=== PATIENT | female | born 1980 | race Caucasian/White ===

== ENCOUNTER 2017-07-31 18:40 | Emergency (ER) | payer MEDICAID ==
[2017-07-31 18:49] VITALS: BP 135/88
--- NOTE | 2017-07-31 19:01 | ED Physician Documentation ---
PD HPI UPPER EXT INJURY - Stated complaint Stated Complaint: FINGER LAC - Chief complaint Chief Complaint: Laceration - History obtained from History obtained from: Patient - History of Present Illness Location: Right, Finger (index) Type of injury: Laceration Where injury occurred: Home Timing - onset: How many hours ago (1) Timing - duration: Hours (1) Timing - details: Abrupt onset Pain level max: 2 Pain level now: 2 Improved by: Rest Worsened by: Palpating Associated symptoms: No: Weakness, Numbness, Tingling, Swelling Contributing factors: No: Anticoagulated Similar symptoms before: Has not had sx before Recently seen: Not recently seen - Additonal information Additional information: cut finger on a broken glass today. Review of Systems Neurologic: denies: Focal weakness, Numbness PD PAST MEDICAL HISTORY - Past Medical History Past Medical History: Yes Other Past Medical History: lymphoma - Past Surgical History Past Surgical History: Yes HEENT: Tonsil/Adenoidectomy - Living Situation Living Situation: reports: With family Living Arrangement: reports: At home - Social History Does the pt smoke?: No Does the pt have substance abuse?: No - Family History Family history: reports: Non contributory - Immunizations Immunizations are current?: Yes Immunizations: TDAP current <10years PD ED PE NORMAL - Vitals Vital signs reviewed: Yes - General General: Alert and oriented X 3, No acute distress - HEENT HEENT: Moist mucous membranes - Neck Neck: Supple, no meningeal sign - Cardiac Cardiac: RRR - Respiratory Respiratory: No respiratory distress, Clear bilaterally - Derm Derm: Warm and dry - Extremities Extremities: Other (R index finger - 0.1cm, flap. no bleeding. NVI.) - Neuro Neuro: Alert and oriented X 3 - Psych Psych: Normal mood, Normal affect Results - Vitals Vitals: Vital Signs - 24 hr 07/31/17 18:47 Temperature 36.8 C Heart Rate 104 H Respiratory 20 Rate Blood Pressure 135/88 H O2 Saturation 98 Oxygen O2 Source Room air Procedures - Laceration (location) R index finger Length in cm: 0.1 Wound type: Flap, Other (pad of finger) Neurovascular status: Sensory intact, Motor intact, Vascular intact Tendon involvement: Tendon intact Wound Preparation: Irrigated copiously NS Skin layer closure: Dermabond Other: Patient tolerated well, No complications, Neurovascular intact, Tetanus UTD Complexity: Simple PD MEDICAL DECISION MAKING - ED course Complexity details: considered differential, d/w patient, d/w family ED course: Patient with a 0.1 cm flap laceration to the pad of the right index finger. Repaired with Dermabond. Tolerated well. Tetanus up-to-date. Warnings of infection and instructions on wound care given at bedside. Also counseled on how to minimize scarring. Patient counseled regarding signs and symptoms for which I believe and urgent re-evaluation would be necessary. Patient with good understanding of and agreement to plan and is comfortable going home at this time This document was made in part using voice recognition software. While efforts are made to proofread this document, sound alike and grammatical errors may occur. Departure - Departure Disposition: 01 Home, Self Care Clinical Impression: Finger laceration Qualifiers: Encounter type: initial encounter Finger: index finger Damage to nail status: without damage Foreign body presence: without foreign body Laterality: right Qualified Code(s): S61.210A - Laceration without foreign body of right index finger without damage to nail, initial encounter Condition: Good Instructions: ED Laceration Hand Follow-Up: Jennifer Mcdonald ARNP [Primary Care Provider] - As Needed Comments: This should heal without difficulty. Keep the wound clean. Return for redness , swelling or drainage from the wound. Do not apply ointment as this will dissolve the glue. Discharge Date/Time: 07/31/17 19:10
== END 2017-07-31 19:10 | disposition home or self-care (01) ==
LOC: ED 18:40
DX: S61.210A Laceration without foreign body of right index finger without damage to nail, initial encounter (principal); W25.XXXA Contact with sharp glass, initial encounter; Y92.009 Unspecified place in unspecified non-institutional (private) residence as the place of occurrence of the external cause; Z85.72 Personal history of non-Hodgkin lymphomas
CPT/HCPCS: 12001; 99282; 99283

== ENCOUNTER 2020-02-26 11:07 | Outpatient (CLI) | payer OTHER, MEDICAID ==
--- NOTE | 2020-02-26 16:10 | XRAY Report ---
PROCEDURE: Cervical Spine 2 View INDICATIONS: NECK PAIN TECHNIQUE: 3 view(s) of the cervical spine were acquired. COMPARISON: None FINDINGS: Bones: No fractures or dislocations to the C7-T1 level. The lateral masses of C1 appear intact on t he odontoid view. No suspicious bony lesions. Minimal retrolisthesis of C5 on C6 as well as disc sp meme narrowing at this level. Soft tissues: No prevertebral soft tissue swelling. IMPRESSION: Minimal retrolisthesis and disc space narrowing at C5-6. Reviewed by: Kelly Hudson MD on 02/26/2020 4:08 PM [facility] Approved by: Kelly Hudson MD on 02/26/2020 4:08 PM PST Station ID: [id number]
== END 2020-02-26 23:59 | disposition home or self-care (01) ==
LOC: DI.S 11:07
PROVIDERS: ATTEND Physician Assistant
DX: S16.1XXA Strain of muscle, fascia and tendon at neck level, initial encounter (principal); M48.02 Spinal stenosis, cervical region

== ENCOUNTER 2021-01-19 10:03 | Emergency (ER) | payer MEDICAID ==
--- NOTE | 2021-01-19 10:31 | ED Physician Documentation ---
PD HPI CHEST PAIN - Stated complaint Stated Complaint: CHEST PX - Chief complaint Chief Complaint: Cardiac - History obtained from History obtained from: Patient - History of Present Illness Timing - onset: How many days ago (4) Timing - onset during: No: Exertion Timing - duration: Days (4) Timing - details: Still present (worse during night last night, with "gassy" feeling and some improvement with belching.), Waxing and waning Quality: Tightness, Aching Location: Substernal, Epigastric Improved by: Antacids, Other (has noted worst symptoms during night or early AM. Feels better when up and around/active.) Worsened by: No: Exertion Associated symptoms: Nausea, Feeling faint / dizzy. No: Shortness of air, Palpitations Similar symptoms before: Diagnosis (prior episode of GERD/gastritis in the past. Was not currently on H2/PPI but started Prilosec 4 days ago. Not improved as yet.) Recently seen: Not recently seen Review of Systems Constitutional: denies: Fever, Chills Nose: denies: Rhinorrhea / runny nose, Congestion Throat: denies: Sore throat Respiratory: denies: Cough GI: denies: Abdominal Pain, Nausea, Vomiting, Diarrhea Neurologic: denies: Generalized weakness, Near syncope, Altered mental status, Headache PD PAST MEDICAL HISTORY - Past Medical History Cardiovascular: None Respiratory: None Neuro: None Endocrine/Autoimmune: None GI: GERD - Past Surgical History Past Surgical History: Yes HEENT: Tonsil/Adenoidectomy - Present Medications Home Medications: Ambulatory Orders Medication Instructions Recorded Confirmed Lidocaine Viscous 2% [Xylocaine 5 ml PO Q4H PRN #100 ml 01/19/21 Viscous 2%] Sucralfate [Carafate] 1 gm PO ACHS #40 tablet 01/19/21 - Allergies Allergies/Adverse Reactions: Allergies Allergy/AdvReac Type Severity Reaction Status Date / Time No Known Drug Allergies Allergy Verified 01/19/21 10:29 - Social History Does the pt smoke?: No Smoking Status: Never smoker Does the pt drink ETOH?: No Does the pt have substance abuse?: No - Immunizations Immunizations are current?: Yes Immunizations: TDAP current <10years PD ED PE NORMAL - Vitals Vital signs reviewed: Yes - General General: Alert and oriented X 3, No acute distress, Well developed/nourished - HEENT HEENT: Moist mucous membranes, Pharynx benign - Neck Neck: Supple, no meningeal sign, No adenopathy - Cardiac Cardiac: RRR, No murmur - Respiratory Respiratory: Clear bilaterally, Other (no chestwall tenderness) - Abdomen Abdomen: Normal bowel sounds, Soft, Non distended, No organomegaly, Other (mild epigastric tender without guarding nor percussion tenderness. ) - Derm Derm: Normal color, Warm and dry - Extremities Extremities: Normal ROM s pain, No edema, No calf tenderness / cord - Neuro Neuro: Alert and oriented X 3, No motor deficit, Normal speech Results - Vitals Vitals: Vital Signs - 24 hr 01/19/21 01/19/21 01/19/21 10:09 10:30 12:00 Temperature 36.5 C Heart Rate 82 108 H 67 Respiratory 16 18 17 Rate Blood Pressure 123/86 H 125/86 H 110/83 H O2 Saturation 98 97 98 Oxygen O2 Source Room air - EKG (time done) 10:11 Rate: Rate (enter#) (96) Rhythm: NSR [place]: Normal Intervals: Normal [place] QRS: Normal Ischemia: Normal ST segments, T wave inversion (v3-6.), Non specific changes. No: ST elevation c/w ischemia, ST depression Compare to prior EKG: Old EKG unavailable - Labs Labs: Laboratory Tests 01/19/21 01/19/21 01/19/21 10:30 10:30 10:30 WBC 11.6 H RBC 5.52 H Hgb 15.7 Hct 46.8 MCV 84.8 MCH 28.4 MCHC 33.5 RDW 13.9 Plt Count 243 MPV 10.5 Neut # (Auto) 9.3 H Lymph # (Auto) 1.6 Door # (Auto) 0.6 Eos # (Auto) 0.1 Baso # (Auto) 0.0 Absolute Nucleated RBC 0.00 Nucleated RBC % 0.0 Sodium 138 Potassium 3.8 Chloride 103 Carbon Dioxide 23 Anion Gap 12.0 BUN 18 Creatinine 1.0 Estimated GFR (MDRD) 61 L Glucose 113 H Calcium 9.4 Total Bilirubin 1.0 AST 13 ALT 11 Alkaline Phosphatase 55 Troponin I High Sens < 2.3 L Total Protein 7.5 Albumin 4.6 Globulin 2.9 Albumin/Globulin Ratio 1.6 Lipase 29 - Rads (name of study) chest xray Radiology: Prelim report reviewed (normal), See rad report PD MEDICAL DECISION MAKING - ED course Complexity details: reviewed results (ECG with t inversions and no comparison here. Pt says she has some heart scarring from prior radiation therapy but not sure if ECG changes. Symptoms steady since last night and normal Trop, labs, CXR. Also improved with GI cocktail. Does not sound ACS.), re-evaluated patient (improved with GI cocktail. ), considered differential (chest pain - will get usual tests. History of GERD so can try GI meds. ), d/w patient Departure - Departure Disposition: Home, Self Care Clinical Impression: Chest discomfort Reflux esophagitis Qualifiers: Esophagitis bleeding: without hemorrhage Qualified Code(s): K21.00 - Gastro- esophageal reflux disease with esophagitis, without bleeding Condition: Stable Record reviewed to determine appropriate education?: Yes Instructions: ED GERD Prescriptions: Sucralfate [Carafate] 1 gm PO ACHS #40 tablet Lidocaine Viscous 2% [Xylocaine Viscous 2%] 5 ml PO Q4H PRN #100 ml PRN Reason: Pain Comments: No signs of acute heart or lung problems on your EKG, chest x-ray, blood tests. Presume this is some irritation of the esophagus related to reflux and acid. Continue with the Prilosec. Add sacral fate as directed for the next week to 10 days. You can use antacid such as Maalox or Mylanta along with lidocaine if needed for discomfort as well. Tylenol if needed for pains. Follow-up with your primary care if not improved well over the next several days to week. Discharge Date/Time: 01/19/21 12:12
[2021-01-19 10:41] LABS: BASOPHILS % (AUTO) 0.3 %; EOSINOPHILS # (AUTO) 0.1 10^3/uL (0.0-0.7); EOSINOPHILS % (AUTO) 0.7 %; HCT - HEMATOCRIT 46.8 % (37.0-47.0); HGB - HEMOGLOBIN 15.7 g/dL (12.0-16.0); LYMPHOCYTES # (AUTO) 1.6 10^3/uL (1.5-3.5); LYMPHOCYTES % (AUTO) 13.6 %; MEAN CORPUSCULAR HEMOGLOBIN 28.4 pg (27.0-31.0); MEAN CORPUSCULAR HGB CONC 33.5 g/dL (32.0-36.0); MEAN CORPUSCULAR VOLUME 84.8 fL (81.0-99.0); MEAN PLATELET VOLUME 10.5 fL (7.9-10.8); MONOCYTES # (AUTO) 0.6 10^3/uL (0.0-1.0); NEUTROPHILS # (AUTO) 9.3 10^3/uL (1.5-6.6); PLT - PLATELET COUNT 243 10^3/uL (130-450); RED BLOOD COUNT 5.52 10^6/uL (4.20-5.40); RED CELL DISTRIBUTION WIDTH 13.9 % (12.0-15.0); WHITE BLOOD COUNT 11.6 x10^3/uL (4.8-10.8)
--- NOTE | 2021-01-19 10:50 | XRAY Report ---
PROCEDURE: Chest 1 View X-Ray INDICATIONS: Chest pain TECHNIQUE: One view of the chest was acquired. COMPARISON: None. FINDINGS: Surgical changes and devices: None. Lungs and pleura: No pleural effusions or pneumothorax. Lungs are clear. Mediastinum: Mediastinal contours appear normal. Heart size is normal. Bones and chest wall: No suspicious bony lesions. Overlying soft tissues appear unremarkable. IMPRESSION: No acute cardiopulmonary process demonstrated radiographically. Reviewed by: Darshan Blakely MD on 01/19/2021 10:48 AM PDT Approved by: Darshan Blakely MD on 01/19/2021 10:48 AM PDT Station ID: [id number]
[2021-01-19 10:58] LABS: ALBUMIN 4.6 g/dL (3.2-5.5); ALBUMIN/GLOBULIN RATIO 1.6 (1.0-2.2); CALCIUM 9.4 mg/dL (8.5-10.3); POTASSIUM 3.8 mmol/L (3.5-5.0); TOTAL PROTEIN 7.5 g/dL (6.7-8.2)
[2021-01-19] MEDS ORDERED: LIDOCAINE VISCOUS 2% 15 ML UDC MM STA (11:27)
[2021-01-19] MEDS ORDERED: MAG HYDROX/AL HYDROX/SIMETH 30 ML UDC PO STA (11:27)
[2021-01-19 12:07] VITALS: BP 110/83
== END 2021-01-19 12:12 | disposition home or self-care (01) ==
LOC: ED 10:03
DX: K21.00 Gastro-esophageal reflux disease with esophagitis, without bleeding (principal)
CPT/HCPCS: 36415; 71045; 80053; 83690; 84484; 85025; 93005; 99284; A9270

== ENCOUNTER 2021-02-15 12:08 | Outpatient (CLI) | payer MEDICAID ==
--- NOTE | 2021-02-17 13:46 | Mammography Report ---
BILATERAL DIGITAL SCREENING MAMMOGRAM 3D/2D WITH EXAGGERATED CC: 02/15/2021 CLINICAL: Baseline exam. No prior exams were available for comparison. The tissue of both breasts is heterogeneously dense. T his may lower the sensitivity of mammography. There is a possible asymmetry in the right breast posterior depth superior region seen on the mediola teral oblique view only. There is architectural distortion associated with the asymmetry. There also is a possible asymmetry with an obscured and indistinct margin in the right breast middle depth central to the nipple seen on the craniocaudal view only. Additionally, there is a possible asymmetry with an obscured and indistinct margin in the right breas t middle depth medial region seen on the craniocaudal view only. No other significant masses, calcifications, or other findings are seen in either breast. IMPRESSION: INCOMPLETE: NEEDS ADDITIONAL IMAGING EVALUATION The possible asymmetry in the right breast posterior depth superior region seen on the mediolateral o blique view only is indeterminate. Additional views with possible ultrasound are recommended. The possible asymmetry in the right breast middle depth central to the nipple seen on the craniocauda l view only is indeterminate. Additional views with possible ultrasound are recommended. The possible asymmetry in the right breast middle depth medial region seen on the craniocaudal view o nly is indeterminate. Additional views with possible ultrasound are recommended. This exam was interpreted at Station ID: [id number]. NOTE: For mammograms, a report in lay terms will be sent to the patient. Approximately 15% of breast malignancies will not be visualized mammographically. In the management of a palpable breast mass, a negative mammogram must not discourage biopsy of a clinically suspicious lesion. Electronically Signed By: Darshan Blakely M.D., jr/michael:02/16/2021 10:00:01 ACR BI-RADS Category 0: Incomplete 3340F PARENCHYMAL PATTERN: (D) - The breast(s) demonstrate(s) heterogeneously dense fibroglandular parenchy ma. BI-RADS CATEGORY: (0) - 0 Mammo and [place] [id number] Immediate follow-up LATERALITY: (B)
== END 2021-02-15 12:09 | disposition home or self-care (01) ==
LOC: DI.S 12:08
DX: Z12.31 Encounter for screening mammogram for malignant neoplasm of breast (principal); R92.8 Other abnormal and inconclusive findings on diagnostic imaging of breast

== ENCOUNTER 2021-03-18 09:46 | Outpatient (CLI) | payer MEDICAID ==
--- NOTE | 2021-03-19 11:51 | Mammography Report ---
UNILATERAL RIGHT DIGITAL DIAGNOSTIC MAMMOGRAM 3D/2D: 03/18/2021 CLINICAL: Patient returns today to evaluate an asymmetry in the right breast. Comparison is made to exam dated: 02/15/2021 mammogram - [facility]. The tissue of right breast is heterogeneously dense. This may lower the sensitivity of mammography. There is an asymmetry in the right breast posterior depth superior region seen on the mediolateral ob lique view only. There is architectural distortion associated with the asymmetry. There also is a possible asymmetry with an obscured and indistinct margin in the right breast middle depth central to the nipple seen on the craniocaudal view only. This is less prominent. Additionally, there is an asymmetry in the right breast middle depth medial region seen on the cranio caudal view only. This is seen in additional views. This is less prominent. No other significant masses or calcifications are seen in the breast. IMPRESSION: INCOMPLETE: NEEDS ADDITIONAL IMAGING EVALUATION The asymmetry and associated architectural distortion in the right breast posterior depth superior re gion seen on the mediolateral oblique persists with spot compression. An ultrasound is recommended to evaluate for a potential underlying mass. Additional asymmetries are persistent but less prominent, likely cysts. An ultrasound is recommended and is scheduled to follow. This exam was interpreted at Station ID: [id number]. NOTE: For mammograms, a report in lay terms will be sent to the patient. Approximately 15% of breast malignancies will not be visualized mammographically. In the management of a palpable breast mass, a negative mammogram must not discourage biopsy of a clinically suspicious lesion. Electronically Signed By: Darshan Blakely M.D. jr/:03/18/2021 11:56:52 ACR BI-RADS Category 0: Incomplete 3340F PARENCHYMAL PATTERN: (D) - The breast(s) demonstrate(s) heterogeneously dense fibroglandular parashviny ma. BI-RADS CATEGORY: (0) - 0 Ultrasound [id number] Immediate follow-up LATERALITY: (B)
--- NOTE | 2021-03-19 11:51 | Ultrasound Report ---
LIMITED ULTRASOUND OF RIGHT BREAST: 03/18/2021 CLINICAL: Patient returns today to evaluate an architectural distortion in the right breast. Comparison is made to exams dated: 03/18/2021 mammogram and 02/15/2021 mammogram - [facility]. Real-time ultrasound of the right breast 9-2 o'clock region was performed. Reece scale images of the real-time examination were reviewed. There are multiple benign simple and minimally complicated cysts. No sonographic correlate for the asymmetry and architectural distortion in at 12:00 position seen on mammography. IMPRESSION: SUSPICIOUS OF MALIGNANCY The architectural distortion and asymmetry in the right breast at 12 o'clock posterior depth is not s een sonographically. This is suspicious of malignancy. A stereotactic biopsy is recommended. Additional asymmetries seen with mammography are consistent with cysts. No further follow-up is recom mended. This exam was interpreted at Station ID: [id number]. Electronically Signed By: Darshan Blakely M.D. jr/:03/19/2021 10:43:37 Entry: - 03/19/2021 11:49:01 Ultrasound BI-RADS: 4 Suspicious for malignancy BI-RADS CATEGORY: (4) - 4 None [id number] Immediate follow-up LATERALITY: ()
== END 2021-03-18 09:47 | disposition home or self-care (01) ==
LOC: DI 09:46
PROVIDERS: ATTEND Obstetrics & Gynecology
DX: R92.8 Other abnormal and inconclusive findings on diagnostic imaging of breast (principal)

== ENCOUNTER 2021-04-14 10:19 | Outpatient (CLI) | payer MEDICAID ==
--- NOTE | 2021-04-16 07:07 | Mammography Report ---
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 Comparison is made to exams dated: 03/18/2021 ultrasound, 03/18/2021 mammogram, 02/15/2021 mammogram, a nd 04/14/2021 stereotactic biopsy - [facility]. The tissue of right breast is hetero geneously dense. This may lower the sensitivity of mammography. The previously described asymmetry in the right breast posterior depth superior region seen on the me diolateral oblique view only with associated architectural distortion is not seen in today's addition al views. This was not seen on the prior ultrasound. This finding was possibly seen in only one of f our different attempts and the area was included in all four views. It could not be confidently repro duced to allow for accurate targeting for stereotactic biopsy that the patient was initially schedule d to have today. As a result, the biopsy was terminated. No other significant masses or calcifications are seen in the breast. IMPRESSION: PROBABLY BENIGN The previously described asymmetry in the right breast with possible architectural distortion could n ot be confidently reproduced for targeting during initially scheduled stereotactic guided biopsy. The re was no sonographic correlate on prior evaluation. This most likely is fibroglandular tissue and is probably benign. A follow-up right mammogram with possible right ultrasound in 6 months is recommended to demonstrate stability. Findings and recommendations were discussed with the patient during today's examination. This exam was interpreted at Station ID: [id number]. NOTE: For mammograms, a report in lay terms will be sent to the patient. Approximately 15% of breast malignancies will not be visualized mammographically. In the management of a palpable breast mass, a negative mammogram must not discourage biopsy of a clinically suspicious lesion. Electronically Signed By: Vish Gayle M.D. aty/:04/15/2021 11:09:21 ACR BI-RADS Category 3: Probably benign 3343F PARENCHYMAL PATTERN: (D) - The breast(s) demonstrate(s) heterogeneously dense fibroglandular parashviny mae. BI-RADS CATEGORY: (3) - 3 Mammo and [place] [id number] 6 month follow-up LATERALITY: (R)
== END 2021-04-14 10:20 | disposition home or self-care (01) ==
LOC: DI 10:19
PROVIDERS: ATTEND Obstetrics & Gynecology
DX: R92.8 Other abnormal and inconclusive findings on diagnostic imaging of breast (principal)

== ENCOUNTER 2021-10-16 08:57 | Outpatient (CLI) | payer MEDICAID ==
--- NOTE | 2021-10-19 08:07 | Mammography Report ---
UNILATERAL RIGHT DIGITAL DIAGNOSTIC MAMMOGRAM 3D/2D: 10/16/2021 CLINICAL: Patient returns for a 6 month follow up of the right breast. Comparison is made to exams dated: 04/14/2021 mammogram, 03/18/2021 mammogram, and 02/15/2021 mammogram - [facility]. The tissue of right breast is heterogeneously dense. This may lower the sensitivity of mammography. There is a possible architectural distortion in the right breast posterior depth superior region seen on the mediolateral oblique view only. This is not seen in additional views. This was not seen on a dditional views at time of attempted stereotactic biopsy. No other significant masses or calcifications are seen in the breast. IMPRESSION: BENIGN There is no mammographic evidence of malignancy. Return to annual mammogram screening schedule is recommended. Due March 2022. Exam findings were conveyed to the patient. Based on the Tyrer Cuzick model (a risk assessment model) the patients lifetime risk is 11.8% and he r 10 year risk is 1.9%. According to the ACR, ACS, and NCCN guidelines, an annual breast MRI exam carlos ng with mammogram is recommended if the patients lifetime risk is 20% or greater. This exam was interpreted at Station ID: [id number]. NOTE: For mammograms, a report in lay terms will be sent to the patient. Approximately 15% of breast malignancies will not be visualized mammographically. In the management of a palpable breast mass, a negative mammogram must not discourage biopsy of a clinically suspicious lesion. Electronically Signed By: Adalberto Noonan M.D. slc/:10/16/2021 09:49:06 ACR BI-RADS Category 2: Benign Finding(s) 3342F PARENCHYMAL PATTERN: (D) - The breast(s) demonstrate(s) heterogeneously dense fibroglandular parenchy ma. BI-RADS CATEGORY: (2) - 2 Mammogram [id number] return to screening LATERALITY: (B)
== END 2021-10-16 08:58 | disposition home or self-care (01) ==
LOC: DI 08:57
PROVIDERS: ATTEND Obstetrics & Gynecology
DX: R92.8 Other abnormal and inconclusive findings on diagnostic imaging of breast (principal)